=== PATIENT | female | born 1965 | race Caucasian/White ===

== ENCOUNTER 2023-07-21 07:26 | Day surgery (SDC) | payer OTHER, SELFPAY ==
[2023-07-19 15:08] VITALS: BMI 23.2
--- NOTE | 2023-07-20 09:13 | P.CONAN_ITS ---
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% [facility] Past Medical History Medical History Elevated cholesterol Osteopenia Cardiomyopathy Surgical History Surgical History History of surgery on right wrist Hx of elbow surgery History of endometrial ablation Hx of shoulder surgery H/O colonoscopy Social History Social History (Updated 07/19/23 @ 15:08 by Lisa Fallon RN) Household Members: Spouse Patient Tobacco Use Status: Never used Tobacco Use of substances other than those prescribed or required for medical reasons: No Are you DNR?: No Advance Directives: No Advance Directives Information Provided: Yes Patient : No Meds Allergies Allergy/AdvReac Type Severity Reaction Status Date / Time No Known Allergies Allergy Unverified 11/23/19 15:22 [No Known Allergies*] Home Medications ?Medication ?Instructions ?Recorded ?Confirmed ?Last Taken ?Type atorvastatin 10 mg tablet 10 mg PO DAILY 07/19/23 07/19/23 Unknown History lisinopril 5 mg tablet 5 mg PO DAILY 07/19/23 07/19/23 Unknown History multivitamin 1 tab PO DAILY 07/19/23 07/19/23 Unknown History Exam Height,Weight and Vital Signs: Height 5 ft 7.25 in Weight 67.585 kg Assessment and Plan Assessment Anesthesia Assessment: Chart Reviewed Documented by User: Nasim Laureano MD 07/21/23 08:48 PMFSH Past Medical History Medical History Elevated cholesterol Osteopenia Cardiomyopathy Family History Family history of problems with anesthesia: No Surgical History Surgical History History of surgery on right wrist Hx of elbow surgery History of endometrial ablation Hx of shoulder surgery H/O colonoscopy History of Problems with Anesthesia: No Social History Social History (Updated 07/19/23 @ 15:08 by Lisa Fallon RN) Household Members: Spouse Patient Tobacco Use Status: Never used Tobacco Use of substances other than those prescribed or required for medical reasons: No Are you DNR?: No Advance Directives: No Advance Directives Information Provided: Yes Patient : No Meds Allergies Allergy/AdvReac Type Severity Reaction Status Date / Time No Known Allergies Allergy Unverified 11/23/19 15:22 [No Known Allergies*] Home Medications ?Medication ?Instructions ?Recorded ?Confirmed ?Last Taken ?Type atorvastatin 10 mg tablet 10 mg PO DAILY 07/19/23 07/19/23 Unknown History lisinopril 5 mg tablet 5 mg PO DAILY 07/19/23 07/19/23 Unknown History multivitamin 1 tab PO DAILY 07/19/23 07/19/23 Unknown History Exam Airway Mallampati Class: II TM Dist: >3cm Neck ROM: Full Loose/Missing/Broken Teeth: No Heart: rrr Lungs: cta Assessment and Plan Final Anesthetic Review Family History of Problems with Anesthesia: No History of Problems with Anesthesia: No NPO: Yes ASA Class: II Final Preanesthetic Review: No Changes in Pt Med Stat, Meds/Allgs Chart Reviewed, Consent Obtained/Reviewed and Anes Risks/Benef Reviewed Patient Risk: Intermediate Procedure Risk: Intermediate Anesthetic Plan Anesthetic Plan: MAC: Disposition: Standard PACU
[2023-07-21 07:46] VITALS: BMI 23.2
[2023-07-21 08:02] VITALS: BP 139/78; PULSE 60; RESP 16; TEMP 36.5; O2SAT 100; BMI 23.2
[2023-07-21] MEDS: Lactated Ringers 1,000 ML 100 ML IVCONT (08:25)
[2023-07-21 09:36] VITALS: BP 114/72; PULSE 65; RESP 16; TEMP 36.2; O2SAT 100
--- NOTE | 2023-07-21 09:38 | PM.OP ---
Brief Operative Note Date of Service: 07/21/23 Pre-op diagnosis: Screening Post-op diagnosis: other (Diverticulosis) Procedure: Colonoscopy to the cecum Surgeon: Mark Brock MD Anesthesia: MAC Was an Senior Integration Developer used for this Procedure?: No Estimated blood loss (mL): 0 Pathology: none sent Condition: stable Disposition: PACU
[2023-07-21 09:51] VITALS: BP 119/77; PULSE 63; RESP 18; TEMP 36.9; O2SAT 100
--- NOTE | 2023-07-21 09:55 | OP_ITS ---
DATE OF SERVICE: 07/21/2023 SURGEON: Mark Brock MD INDICATIONS: The patient presents for evaluation of colorectal cancer screening. Full consent has been obtained from her for this, including risks of bleeding and perforation. PREOPERATIVE DIAGNOSIS: Colorectal cancer screening. POSTOPERATIVE DIAGNOSIS: PROCEDURE PERFORMED: Colonoscopy to the cecum. ESTIMATED BLOOD LOSS: COMPLICATIONS: ANESTHESIA: Monitored anesthesia care. ASSISTANTS: SPECIMENS: POSTOPERATIVE DIAGNOSES: Colorectal cancer screening, sigmoid diverticulosis, and internal hemorrhoids. DESCRIPTION OF PROCEDURE: The patient was placed in the left lateral decubitus position. The digital rectal exam revealed no abnormalities. The Olympus video pediatric colonoscope was entered into the rectum and advanced easily to the cecum. Once in the cecum, I did identify normal-appearing cecal pouch with appendiceal orifice and a normal-appearing ileocecal valve. There was transillumination of light deep in the right lower quadrant. The entire cecum and ileocecal valve appeared normal. The scope was then slowly withdrawn assessing all mucosal surfaces carefully. Preparation was excellent. I did not visualize any sign of polyps, colitis, or angiodysplasia. There was a mild amount of sigmoid diverticulosis. In the rectum, scope was retroflexed visualizing internal hemorrhoids, but no other pathology. The rectal mucosa appeared normal. Scope was straightened and withdrawn from the patient. She tolerated the procedure well and was returned to the recovery area in stable condition. IMPRESSION: 1. Diverticulosis. 2. Internal hemorrhoids. PLAN: Given today's negative exam and negative family history, I would recommend a followup colonoscopy in 10 years for further screening. She will otherwise see me on a p.r.n. basis. This has been discussed with her . MD MARC Alvarado/VILMAL / [id number]
== END 2023-07-21 10:20 | disposition home or self-care (01) ==
PROVIDERS: PCP Internal Medicine; Visit Provider Internal Medicine
PROC: 0DJD8ZZ Inspection of Lower Intestinal Tract, Via Natural or Artificial Opening Endoscopic (ICD-10-PCS; CPT 45378; principal; 2023-07-21 08:40)
DX: Z12.11 Encounter for screening for malignant neoplasm of colon (principal); K57.30 Diverticulosis of large intestine without perforation or abscess without bleeding; K64.8 Other hemorrhoids
CPT/HCPCS: 45378; J2704